=== PATIENT | male | born 1965 | race Caucasian/White ===

== ENCOUNTER 2018-06-25 01:11 | Inpatient (IN) | payer OTHER ==
--- NOTE | 2018-06-25 01:22 | EDPHY ---
H & P Stated Complaint: [facility]1 [facility], BROUGHT IN BY CARYN NORWOOD OUT OF SENIOR CARE Source: Patient, Police - Personal History Current Tetanus/Diphtheria Vaccine: Yes - Medical/Surgical History Hx Asthma: No Hx Chronic Respiratory Disease: No Hx Diabetes: No Hx Cardiac Disease: No Hx Renal Disease: No Hx Cirrhosis: No Hx Alcoholism: No Hx HIV/AIDS: No Hx Splenectomy or Spleen Trauma: No Other PMH: SCHIZOPHRENIA - Social History Smoking Status: Never smoked Time Seen by Provider: 06/25/18 01:20 HPI/ROS: HPI CHIEF COMPLAINT: M1 hold by police. From [facility]. HISTORY OF PRESENT ILLNESS: 45-year-old male presents emergency room on M1 hold. Patient is unclear why he is here, however came in on an m1 hold, for being gravely disabled. He has a history schizophrenia not taking his medications. He is homeless. According to the [facility] he was responding to internal stimuli. Unable to care for himself and not on any medications brought here on M1 hold. Past Medical History: Schizophrenia off medication Past Surgical History: No recent surgery Social History: The patient denies drugs alcohol tobacco. Homeless. Not employed. Family History: Noncontributory ROS REVIEW OF SYSTEMS: 10 Systems were reviewed and negative with the exception of the elements mentioned in the history of present illness. Exam Constitutional nontoxic triage nursing summary reviewed, vital signs reviewed, awake/alert. Eyes normal conjunctivae and sclera, EOMI, PERRLA. HENT normal inspection, atraumatic, moist mucus membranes, no epistaxis, neck supple/ no meningismus, no raccoon eyes. Respiratory clear to auscultation bilaterally, normal breath sounds, no respiratory distress, no wheezing. Cardiovascular rate normal, regular rhythm, no murmur, no edema, distal pulses normal. Gastrointestinal soft, non-tender, no rebound, no guarding, normal bowel sounds, no distension, no pulsatile mass. Genitourinary no CVA tenderness. Musculoskeletal no midline vertebral tenderness, full range of motion, no calf swelling, no tenderness of extremities, no meningismus, good pulses, neurovascularly intact. Skin pink, warm, & dry, no rash, skin atraumatic. Neurologic awake, alert and oriented x 3, AAOx3, moves all 4 extremities equally, motor intact, sensory intact, CN II-XII intact, normal cerebellar, normal vision, normal speech. Psychiatric flat affect, soft spoken Heme/Lymph/Immune no lymphadenopathy. Differential Diagnosis: Includes but is not limited to in a particular order underlying schizophrenia, mood disorder, bipolar disorder, drug intoxication, homelessness, grave disability Medical Decision Making: Plan for this patient blood draw for medical clearance , patient on M1 hold will need mental health evaluation. Re-evaluation: 0557AM: Signed over to Dr. Segura at 7am. No events overnight. Pending eval. (Mike Arriaga) Constitutional: Initial Vital Signs Temperature (C) 36.6 C 06/25/18 01:11 Heart Rate 73 06/25/18 01:11 Respiratory Rate 18 06/25/18 01:11 Blood Pressure 129/97 H 06/25/18 01:11 O2 Sat (%) 95 06/25/18 01:11 O2 Delivery Mode Room Air Allergies/Adverse Reactions: No Known Allergies Allergy (Unverified 06/25/18 01:11) Home Medications: Medication Instructions Recorded NK [No Known Home Meds] 06/25/18 Medical Decision Making ED Course/Re-evaluation: The patient remained stable on my shift. At 3pm he is still being evaluated by the psychiatric team. He will be turned over to Dr. Alba at shift change. (Von Segura) Other Provider: I assumed care of the patient care 0700. (Von Segura) I assumed care of this patient at 3:[address] Rush Segura. Had 4:00 p.m. I was notified that the patient has been accepted at [address] [place] [address]. EMTALA form has been signed. Transfer is anticipated around 6:00 p.m.. (Samantha Alba) - Data Points Laboratory Results: Laboratory Results 06/25/18 01:35 06/25/18 01:35 Medications Given: Paliperidone (Invega) 6 mg PO DAILY ALEJANDRO Stop: 12/23/18 14:44 Last Admin: 06/28/18 08:48 Dose: Not Given Discontinued Medications Permethrin (Lice Treatment) 59 ml TP ONCE ONE Stop: 06/26/18 17:02 Last Admin: 06/26/18 19:14 Dose: 59 ml Departure - Departure Disposition: [facility] IP Clinical Impression: Schizophrenia Qualifiers: Schizophrenia type: paranoid schizophrenia Qualified Code(s): F20.0 - Paranoid schizophrenia Condition: Fair
[2018-06-25 01:49] LABS: PLATELET COUNT 219 10^3/uL (150-400)
--- NOTE | 2018-06-25 12:10 | ASMTLCPROG ---
Notes Note: Notes: Contacted [facility] for collateral information. PT's Psychiatrist is Dr. Rogers, PT was seen 06/21/18 and is prescribed the following meds: Lamictal 25mg -2tabs in the morning (50mg), Nardil 15mg 2 each HS (30mg daily) Ridalin 20mg (daily) tab oral 0.5 each QID Date Signed: 06/25/2018 12:10 PM Electronically Signed By:Mitch Benjamin
--- NOTE | 2018-06-25 14:51 | ASMTTLCEVL ---
[facility] Evaluation - Basic Information Evaluation Start Date and 06/25/2018 01:00 PM Time Hospital Status Answers: M1 Hold 72-hr M1 Hold Start Date 06/24/2018 11:55 PM and Time Patient statement Notes: "I am not suicidal or violent, I was arrested for camping and they brought me here from retirement at 1:30 last night. I'd like to be released an have my own close and possessions back. Narrative Notes: Pt is a 52 YO white male, never , with no children, unemployed, homeless, presenting from [facility] (bonded out) on an M1 Hold as gravely disabled. Per previous reports the pt has a long hx of Schizoaffective Disorder and is not taking any medications. clinical assessment team noticed on the security monitors before entering the room that the PT did appear to be responding to internal stimuli, however during the evaluation he was calm and goal oriented about leaving being discharged Per M1 Hold " The responedant has a dx of Schorphrenia and has had no mental health treatment nor medications for quite some time. Repsondent is responding to internal stimuli and is extremely paranoid and guarded and not cabable of making informed decisions. Per ED report 52-year-old male presents emergency room on M1 hold. Patient is unclear why he is here, however came in on an m1 hold, for being gravely disabled. He has a history schizophrenia not taking his medications. He is homeless. According to the retirement he was responding to internal stimuli. Unable to care for himself and not on any medications brought here on M1 hold. Schizophrenia off medication Diagnosis History Notes: Schizoaffective Disorder, Bipolar Type 295.70 (F25.0) Prior suicide attempts Notes: Per previous 2009 medical reports the pt has had past suicide attempts. Prior hospitalizations Notes: Pt was hosptialized at [facility] inpt 3N unit in 2008. [facility] was contacted but was unable to provide any information about prior hospitalization due to system limitations. PT has been an open client but no records before Apr 2017 are accessible by [facility] Staff Medications (name, dosage, route, freq uency) Notes: PT is not currently on any medications. Per discharge summary from 2008 Again, his current medications include Haldol 5 mg in the morning and 10 mg at bedtime, Depakote 100 mg at bedtime. He is on a short-term certification, which I am transferring to the [facility]. He received Haldol Decanoate 25 mg intramuscularly on the date of discharge, 06/06/09. Per [facility] verbal report 06/21/31 (This does not seem congruent with pt's statements) Lamictal 25mg -2tabs in the morning (50mg), Nardil 15mg 2 each HS (30mg daily) Ridalin 20mg (daily) tab oral 0.5 each QID Allergies/Reaction Notes: No known allergies reported Sleep Notes: Not great because of my homelessness Appetite Notes: Good Medical/Surgical history Notes: PAST MEDICAL HISTORY: Depression, suicide attempts, rhabdomyolysis, acute renal insufficiency, which required dialysis after overdosing, seizures. In some of his past medical history I have read that he has hypertension. He denies this. PAST SURGICAL HISTORY: None. FAMILY HISTORY: His father had Parkinson's and from liver cancer. His mother in her 70s from heart failure. He has one living sister. Substance use history (frequency, intensity, his tory, duration) Notes: Per previous report "He does smoke a pack of cigarettes a day, since he was a teenager and at this time does not want to quit. He is not on any hard drugs or any marijuana. He does drink a case of beer approximately each week, when he is not here and he says that equals about a 12-pack for him each day. " Family composition Notes: His father had Parkinson's and from liver cancer. His mother in her 70s from heart failure. He has one living sister. Need for family Answers: No participation in patient's care Family psychiatric/substance abuse history Notes: None reported Developmental history Notes: Pt will not disclose, per [facility] report the PT is treated for ADHD with ritalin. No TBI's Concussions, or Abuse has been disclosed Abuse concerns Answers: None Marital status/children Notes: He has no children. He is not . Living situation Notes: Homeless Sexual history/orientation Notes: Heterosexual, not active Treatment Responses Notes: BEHAVIORAL HEALTH DISCHARGE SUMMARY Miky Fuentes MD DATE OF ADMISSION: 05/13/09 ANTICIPATED DATE OF DISCHARGE: 06/07/09 DATE OF DISCHARGE: 06/06/09 DIAGNOSES [place] I - Schizoaffective disorder, bipolar type, currently depressed, nicotine dependence, alcohol abuse. [place] II - No known problems. [place] III - History of seizure during alcohol withdrawal. [place] IV - Homeless and unemployed. [place] V - Discharge GAF of 55. PROCEDURES: None. COMPLICATIONS: None. BRIEF REVIEW OF CASE: Mr. Bro Lockett is a 43-year-old white male with a long history of schizoaffective disorder. He has been living in the [facility] and treated at the [facility] for most of the last decade. Mr. Lockett does have personal resources. His parents apparently left a trust fund to him and his brother is the trustee, so he does have some independent funds. This has led to some problems maintaining his health insurance because Mr. Lockett does not keep up with necessary paper work when his psychosis becomes more prominent. During these times, because he does have some independent resources, he is sometimes judged as not qualifying for disability or Medicaid and these have been discontinued in the past. This has led to him being dropped by treatment at the [facility] periodically over the past years. Most recently, Mr. Lockett has had treatment at the [facility] and actually apparently was discharged from the [facility] because he obtined some private insurance; however, he unfortunately did not follow up with any private practice psychiatrist and he did not remain on his medications. He was living independently in his own apartment but apparently off of his medications,his psychosis recurred and he became more and more paranoid starting in the spring of this year. He apparently made some threatening statements to his land lady at the apartment building where he was living and he was evicted from there for this and apparently for nonpayment of rent as well. This apparently was a forcible eviction. The patient then took what possessions he could and placed them in his automobile. He let air out of the tires of his automobile and proceeded to remain in his automobile. Eventually, police were called and when the approached Mr. Lockett, he was very fearful. He was apparently paranoid that the police were going to harm him. At one point, he locked the doors and then reached under his seat for something. The police were concerned that he as reaching for a weapon, and they forcibly entered the car and restrained him. He apparently did not have a weapon, however. The police did recognize Mr. Lockett as being mentally ill. They brought him to the [facility] Emergency Room on a 72-hour mental health hold. He was quite paranoid and we judged him to be gravely disabled and potentially dangerous to self and others. In particular, he was apparently threatening suicide or wishing that he were . He also had previously threatened the land lady suggesting significant dangerousness both to himself and to others. We admitted him to [facility] and restarted haloperidol and Depakote because these had worked in the past. In addition, I placed him on a short-term certification because of the grave disability and dangerousness. We had a court hearing at which the certification was upheld. Mr. Lockett began to improve significantly as we worked the dose of haloperidol up to a total of 15 mg per day on 5 mg in the morning and 10 mg at bedtime. His paranoia seemed to gradually lyndsey. His psychosis significantly improved. He was denying internal stimuli. He became more interactive with others and was able to participate in groups better. He seemed to respond to internal stimuli less and again was markedly less paranoid than he was on admission. By the week of 06/04/09, we judged that he had reached maximal hospital benefit and we thought that he was ready for placement at [facility]. [facility] was willing to have Mr. Lockett come back and be their patient again. The [facility] did not have a bed immediately available but it looked like they would have a bed on 06/07/09, so we prepared discharge 1 day before this. One other item to note, Mr. Lockett did agree finally to taking a long-acting shot of haloperidol. On 06/06/09, I ordered a 25 mg dose of IM haloperidol decanoate. He will next be due for a shot on 07/04/09, and I recommend that he be given 50 mg of haloperidol decanoate at that point in time. I would suggest continuing to work the dose up to a 100 mg dose of haloperidol decanoate every 4 weeks which will help be therapeutic for this patient. At the time of discharge, his dangerousness appeared to be minimal. His psychosis had markedly improved and as this was the main source of dangerousness, I feel comfortable assessing his dangerousness risk as minimal at the time of discharge. His mood had also improved and he was denying any desire to hurt himself or to hurt others. I am asking the [facility] to accept the transfer of the certification at the time of discharge. I think the patient is substantially better and can be treated in a less restrictive setting but reasons exist to be concerned about his remaining in a voluntary treatment program at this point in time. DISCHARGE MEDICATIONS: Include the haloperidol decanoate as mentioned above and also Haldol orally 5 mg in the morning and 10 mg at bedtime. He is also on Depakote 1000 mg at bed time. We hope Mr. Lockett will do well post discharge and remain in treatment. Mr. Bro Lockett, as I previously dictated, was prepared for discharge with anticipated date of discharge of 06/07/09; however, a bed became available at [facility] on the afternoon of 06/06/09. We did feel that he was ready for discharge on that date as he had been stable for several days, had been markedly improved from admission. I am discharging him on 06/06/09. Again, his current medications include Haldol 5 mg in the morning and 10 mg at bedtime, Depakote 100 mg at bedtime. He is on a short-term certification, which I am transferring to the [facility]. He received Haldol Decanoate 25 mg intramuscularly on the date of discharge, 06/06/09. 11/07/09 1148 <Electronically signed by Miky Fuentes MD> Miky Fuentes MD Signature date: Signature time: 1047 T: HOLLY 06/06/09 1620 History of violence Notes: Per 2008 Discharge Summary the Pt wasreported to be threatening, psychotic and labile and thus considered to dangerous while in that state. Therapist: None Psychiatrist: None Peer support/family strengths Notes: PT denied any support, and no other support reported or Identified; pt reported he is not in contact with his sister Education level/history Notes: 12th grade Work history Notes: Unemployed, per previous reports He used to work through [employer]. Notes: None Reported Legal Notes: Unable to locate booking information for PT Alevism/Spiritual Notes: PT denied being spiritual or religous Leisure Notes: PT will not disclose Collateral Notes: Collateral Data obtained from previous 3N discharge summary from 2008 and [facility] provided the pt's current medication list from his most recent visit 06/21/[address] Rogers pt is an open client of [facility] Patient's strengths Answers: Motivated for Treatment (Please select at least TWO strengths): Willingness TLC Evaluation - Mental Status Exam Appearance: Answers: Appropriate Clean Disheveled Eye Contact: Answers: Intermittent Mood: Answers: Irritable Affect: Answers: Appropriate Apprehensive Calm Guarded Behavior: Answers: Appropriate Cooperative Guarded Speech: Answers: Relevant Logical Clear Coherent Thought Process: Answers: Organized Oriented Goal Oriented Insight: Answers: Poor Judgement: Answers: Poor Manic Signs/Symptoms Answers: Distractibility Impulsivity Mood Swings Hallucinations: Answers: Auditory Delusions: Answers: Paranoid Ideation Pt reported to have Answers: No suicidal/self-injuring ideation/behavior? Pt reported to be making Answers: No suicidal/self-injuring threats? Pt reported to be making Answers: No aggression/assault threats? Pt exhibits inability to Answers: Yes care for self/grave disability? Ideation/behavior is Answers: Yes chronic? Pt has access to means to Answers: No execute the plan? Ideation involves Answers: No serious/lethal intent? Ideation has Answers: Yes delusional/hallucinatory content? History of Answers: No suicidal/self-injuring ideation, behavior, or threats? History of Answers: No aggressive/assaultive ideation, behavior, or threats? History of serious Answers: No physical harm to self/others while in treatment setting? TLC Evaluation - Suicide/Homicide Risk Suicide Risk Factors: Answers: < 20 or > 40 Years of Age Bipolar Disorder Inadequate Social Support Lack of Alevism Support Lack of Social Support Lack/Loss of Employment Legal Difficulties Schizoaffective Disorder Single Unstable Living Situation Homicide/violence risk Answers: Paranoid Ideation factors: Current Suicidal Ideation Answers: No in the Past 48 Hours? Current Suicidal Ideation Answers: No in the Past Month? Current Suicidal Answers: No Ideation, Worst Ever? Suicide Internal Answers: Frustration Tolerance Protective Factors: Kady with Stress Suicide External Answers: None Protective Factors: Ranking of patient's Answers: Low suicidal risk: Ranking of patient's Answers: Low homicidal risk: TLC Evaluation - Wrap-up AXIS I Diagnosis (include DSM-V and ICD-10 codes), must also be entered in [employer], which is the source of truth. Notes: Schizoaffective Disorder, Bipolar Type 295.70 (F25.0) PT refused to complete BDI or BSS Evaluation End Date and 06/25/2018 02:50 PM Time (HH:MM): Date Signed: 06/25/2018 02:50 PM Electronically Signed By:Mitch Benjamin
--- NOTE | 2018-06-25 14:56 | ASMTTCLDSP ---
TLC Discharge Disposition Disposition: Answers: Admit Disposition Notes: Notes: In consultation with [facility] ED physician, Rush Segura MD and on-call psychiatrist, Miky Shrestha APN , both concurred that pt appears to meet 27-65 criteria requiring psychiatric hospitalization as pt appears to be at risk of harm to self due to a mental illness condition. Was patient given the Answers: Yes Inpatient Behavioral Health Prohibited Belongings List while in the ED? For inpatient Miky Shrestha APN admission, the following psychiatrist agreed to accept patient for admission to Behavioral Health ([facility]): Hold initiated by: Answers: Other Notes: Griselda [facility] CHILD PSYCHIATRIST Date Signed: 06/25/2018 02:56 PM Electronically Signed By:Mitch Benjamin
[2018-06-25] MEDS ORDERED: ACETAMINOPHEN 325 MG TAB PO PRN (19:17)
[2018-06-25] MEDS ORDERED: OLANZapine DISINTEGR 10 MG TAB PO PRN (19:17)
[2018-06-25] MEDS ORDERED: MAGNESIUM HYDROXIDE 30 ML UDCUP PO PRN (19:17)
[2018-06-25] MEDS ORDERED: NICOTINE POLACRILEX 2 MG GUM B PRN (19:17)
[2018-06-25] MEDS ORDERED: MAG HYDROX/AL HYDROX/SIMETH 30 ML UDCUP PO PRN (19:17)
[2018-06-25] MEDS ORDERED: LORazepam 0.5 MG TAB PO PRN (19:17)
--- NOTE | 2018-06-26 08:18 | PDGENHP ---
History and Physical - Chief Complaint responding to internal stimuli - History of Present Illness 52yo M with a history of schizophrenia not on medications, homelessness who was brought in by the automobile rental representative from custodial on M1 hold for grave disability as he has been responding to internal stimuli. On my evaluation with patient, he is calm. Denies chest pain, sob, cough, fevers/chills, n/v/d, rashes, leg swelling. He denies taking any medications and denies any chronic medical problems for me. Typically smokes cigarettes but no etoh or illicits. Per RN, a lice was found on the patient. I examined the specimen and agree that it does appear to be a louse. History Information - Allergies/Home Medication List Allergies/Adverse Reactions: No Known Allergies Allergy (Unverified 06/25/18 01:11) Home Medications: NK [No Known Home Meds] 06/25/18 [Last Taken Unknown] I have personally reviewed and updated: family history, medical history, social history, surgical history - Past Medical History Additional medical history: schizoaffective disorder, depression, suicide attempts, rhabdomyolysis, acute renal failure requiring dialysis after overdosing, seizures, ? HTN - Surgical History Reports: no pertinent surgical hx - Family History Additional family history: father - Parkinson's, dief of liver cancer, mother - in 70s from heart failure, one sister - Social History Smoking Status: Current some day smoker Tobacco Use: Cigarettes Alcohol Use: None Drug Use: None Additional social history: not , no children, homeless Review of Systems Review of Systems: ROS: 10pt was reviewed & negative except for what was stated in HPI & below Physical Exam Physical Exam: Temp Pulse Resp BP Pulse Ox 36.8 C 66 14 118/68 92 06/26/18 06:00 06/26/18 06:00 06/26/18 06:00 06/26/18 06:00 06/26/18 06:00 Constitutional: no apparent distress, appears nourished, not in pain Eyes: PERRL, anicteric sclera, EOMI Ears, Nose, Mouth, Throat: moist mucous membranes, hearing normal, ears appear normal, no oral mucosal ulcers Cardiovascular: regular rate and rhythym, no murmur, rub, or gallop, No edema Respiratory: no respiratory distress, no rales or rhonchi, clear to auscultation Gastrointestinal: normoactive bowel sounds, soft, non-tender abdomen, no palpable masses Genitourinary: no bladder fullness, no bladder tenderness Skin: warm, normal color, no rashes or abrasions, no fluctuance, no induration, other (no lice on scalp examination), No mottled Musculoskeletal: full muscle strength, no muscle tenderness, normal joint ROM, no joint effusions Neurologic: AAOx3 Psychiatric: interacting appropriately, not anxious, not encephalopathic, thought process linear Lab Data & Imaging Review 06/25/18 01:35 06/25/18 01:35 WBC 8.48 10^3/uL (3.80-9.50) 06/25/18 01:35 RBC 4.75 10^6/uL (4.40-6.38) 06/25/18 01:35 Hgb 15.2 g/dL (13.7-17.5) 06/25/18 01:35 Hct 43.9 % (40.0-51.0) 06/25/18 01:35 MCV 92.4 fL (81.5-99.8) 06/25/18 01:35 MCH 32.0 pg (27.9-34.1) 06/25/18 01:35 MCHC 34.6 g/dL (32.4-36.7) 06/25/18 01:35 RDW 12.4 % (11.5-15.2) 06/25/18 01:35 Plt Count 219 10^3/uL (150-400) 06/25/18 01:35 MPV 11.3 fL (8.7-11.7) 06/25/18 01:35 Neut % (Auto) 57.9 % (39.3-74.2) 06/25/18 01:35 Lymph % (Auto) 26.7 % (15.0-45.0) 06/25/18 01:35 Alger % (Auto) 8.4 % (4.5-13.0) 06/25/18 01:35 Eos % (Auto) 5.7 % (0.6-7.6) 06/25/18 01:35 Baso % (Auto) 0.9 % (0.3-1.7) 06/25/18 01:35 Nucleat RBC Rel Count 0.0 % (0.0-0.2) 06/25/18 01:35 Absolute Neuts (auto) 4.92 10^3/uL (1.70-6.50) 06/25/18 01:35 Absolute Lymphs (auto) 2.26 10^3/uL (1.00-3.00) 06/25/18 01:35 Absolute Monos (auto) 0.71 10^3/uL (0.30-0.80) 06/25/18 01:35 Absolute Eos (auto) 0.48 10^3/uL (0.03-0.40) H 06/25/18 01:35 Absolute Basos (auto) 0.08 10^3/uL (0.02-0.10) 06/25/18 01:35 Absolute Nucleated RBC 0.00 10^3/uL (0-0.01) 06/25/18 01:35 Immature Gran % 0.4 % (0.0-1.1) 06/25/18 01:35 Immature Gran # 0.03 10^3/uL (0.00-0.10) 06/25/18 01:35 Sodium 143 mEq/L (135-145) 06/25/18 01:35 Potassium 4.2 mEq/L (3.3-5.0) 06/25/18 01:35 Chloride 108 mEq/L (97-110) 06/25/18 01:35 Carbon Dioxide 27 mEq/l (22-31) 06/25/18 01:35 Anion Gap 8 mEq/L (6-14) 06/25/18 01:35 BUN 23 mg/dL (7-23) 06/25/18 01:35 Creatinine 1.0 mg/dL (0.7-1.3) 06/25/18 01:35 Estimated GFR > 60 06/25/18 01:35 Glucose 101 mg/dL (70-100) H 06/25/18 01:35 Hemoglobin A1c 5.2 % (4.0-6.0) 06/25/18 19:21 Estim Average Glucose 103 mg/dL (68-126) 06/25/18 19:21 Calcium 9.8 mg/dL (8.5-10.4) 06/25/18 01:35 Total Bilirubin 0.4 mg/dL (0.1-1.4) 06/25/18 19:21 Conjugated Bilirubin 0.2 mg/dL (0.0-0.5) 06/25/18 19:21 Unconjugated Bilirubin 0.2 mg/dL (0.0-1.1) 06/25/18 19:21 AST 30 IU/L (17-59) 06/25/18 19:21 ALT 29 IU/L (21-72) 06/25/18 19:21 Alkaline Phosphatase 52 IU/L (38-126) 06/25/18 19:21 Total Protein 7.3 g/dL (6.3-8.2) 06/25/18 19:21 Albumin 4.0 g/dL (3.5-5.0) 06/25/18 19:21 Triglycerides 80 mg/dL (40-150) 06/25/18 19:21 Cholesterol 219 mg/dL (140-220) 06/25/18 19:21 Cholesterol Risk Factr 0.8 (0.2-1.0) 06/25/18 19:21 LDL Cholesterol, Calc 149 mg/dL (80-100) H 06/25/18 19:21 LDL Risk Factor 1.0 (0.2-1.0) 06/25/18 19:21 VLDL Cholesterol 16 mg/dL (8-25) 06/25/18 19:21 Non-HDL Cholesterol 165 mg/dL (90-129) H 06/25/18 19:21 HDL Cholesterol 54 mg/dL (40-65) 06/25/18 19:21 LDL/HDL Ratio 2.76 RATIO (1.00-3.64) 06/25/18 19:21 Cholesterol/HDL Ratio 4.06 RATIO (1.00-4.97) 06/25/18 19:21 Urine Opiates Screen NEGATIVE (NEGATIVE) 06/25/18 07:26 Urine Barbiturates NEGATIVE (NEGATIVE) 06/25/18 07:26 Ur Phencyclidine Scrn NEGATIVE (NEGATIVE) 06/25/18 07:26 Ur Amphetamine Screen NEGATIVE (NEGATIVE) 06/25/18 07:26 U Benzodiazepines Scrn NEGATIVE (NEGATIVE) 06/25/18 07:26 Urine Cocaine Screen NEGATIVE (NEGATIVE) 06/25/18 07:26 U Marijuana (THC) Screen NEGATIVE (NEGATIVE) 06/25/18 07:26 Ethyl Alcohol < 10 mg/dL (0-10) 06/25/18 01:35 Assessment & Plan Assessment: 52yo M with a history of schizoaffective disorder not on medications, homelessness who was brought in by the automobile rental representative from custodial on M1 hold for grave disability as he was responding to internal stimuli. Plan: #Acute psychosis with schizoaffective disorder - decompensated, reportedly not on medications - M1 hold, admitted to at [facility] #Lice - ordered permethrin lotion for scalp - no need for isolation room, but ensure that he is not sharing towels, bedding, pillows, etc with other patients #H/o renal failure - this was in setting of drug toxicity - creatinine normal here #Elevated BP - unclear if carries true diagnosis of HTN - no indication for anti-hypertensives at this time #? h/o seizures - unclear history on this, he denies but was in prior chart - not currently on AEDs #Tobacco use - recommend nicotine replacement VTE ppx: ambulation
--- NOTE | 2018-06-26 11:29 | ASMTBHMTP ---
Master Treatment Plan Master Treatment Plan Answers: Impaired Reality for: Date: 06/26/2018 Diagnosis on Admission: Schizoaffective Disorder, Bipolar Type 295.70 Expected length of stay: 3-5 Days Reason for admission: Notes: Per TLC Evaluation - Pt. is a 52 year old, white male, never , with no children, unemployed, homeless, presenting from long-term (bonded out) on an M1 hold as gravely disabled. Per previous reports the patient has a long history of schizoaffective disorder and is not taking any medications. clinical assessment team noticed on the security monitors before entering the room the pt did appear to be responding to internal stimuli, however during the evaluation he was calm and goal oriented about leaving being discharged. Per M1 hold "The respondent has a diagnosis of schizophrenia and has had no mental health treatment nor medications for quite some time. Respondent is responding to internal stimuli and is extremely paranoid and guarded and not capable of making informed decisions. Patient's stated presenting problems: Notes: Pt. stated he is here against my will. Pt. stated to review report about why he was admitted to the hospital. Patient's goals for treatment: Notes: Nope Patient's strengths: Notes: Don't know. You would have to ask other people. Identify supports outside of hospital: Notes: Me/Self Discharge criteria: Notes: Psychotic symptoms will be reduced or eliminated with return to baseline functioning in affect, thinking and behavior prior to discharge. Initial disposition plan/considerations: Notes: "Landless pesmitra" who lives in the [place] area. Master Treatment Plan Required Signatures Psychiatrist signature: Answers: Chaim Virk MD: RN on-shift signature: Answers: RN: Patient signature: Answers: Patient: Date Signed: 06/26/2018 11:28 AM Electronically Signed By:Nupur Ramsay
--- NOTE | 2018-06-26 16:36 | BAPA ---
DATE OF SERVICE: 06/26/2018 CHIEF COMPLAINT: "I am not suicidal or violent. I was arrested for camping, and they brought me here from residential at 1:30 last night. I'd like to be released and have my own clothes and possessions back." HISTORY OF PRESENT ILLNESS: The patient is a 52-year-old homeless white man, never , no children, unemployed, presents from residential after bottoming out on an M1 hold for grave disability. According to the M1 hold, which was filled out by an WHARF HELPER at the [facility], states "the respondent has a diagnosis of schizophrenia and has had no mental health treatment, nor medications for quite some time. Respondent is responding to internal stimuli and is extremely paranoid and guarded and not capable of making informed decisions." Based on the T[facility] evaluation, they stated that the behavioral health clinical assessment team at the residential noticed "on security monitors before entering the patient's room that the patient did appear to be responding to internal stimuli;" however, according to the TLC evaluation, when the TLC adzing and boring machine helper met with the patient in the [facility] ED, he was "calm and goal oriented about leaving the emergency department and being discharged." The TLC adzing and boring machine helper noted the patient understood what was happening to him. He understood his situation. He was oriented to person, place, and time. The patient gave no indication that he was incapable of planning for food, clothing , and custodial were he not to be in the hospital. When this MD met with the patient on the inpatient behavioral health services unit on [address], he had just taken a shower. He washed his clothes. He put on hospital scrubs and a hospital gown. He put on clean socks. He was calm, cooperative, pleasant. He had a flat affect. He engaged the MD appropriately. He made good eye contact. His thought process was linear and goal directed. The patient said that he did not understand why he was sent to the psychiatric unit. He said he did not realize that he had been placed on a mental health hold. He said that he did not understand when the mental health hold had been placed. attempted to explain that it was done by an WHARF HELPER at the [facility]. He said that he did remember a member of the MHP team at the residential coming and talking to him in the meeting area at the residential. He states that he did not "get along with her" and said that he did not want to talk to her. This might explain why the WHARF HELPER, Tesha Marshall, noted that the patient was " paranoid and guarded and not capable of making informed decisions." The patient states that he simply did not want to talk to the provider. Did not understand who they were. He says "they didn't have a badge." The patient says he was not sure why he was being questioned or evaluated. This might have come across as withdrawn and guarded and possibly defensive to the WHARF HELPER. When MD specifically asked the patient about paranoid delusions and any psychotic symptoms, he denied experiencing auditory or visual hallucinations. He denied bizarre thoughts, intrusive thoughts. He denied ideas of reference, and he denied any paranoid delusions. He said he was not scared or fearful about being in the hospital. He did not believe that anyone was out to harm him. He did not believe that people were monitoring him or watching him. The MD did ask the patient about whether or not he had any thoughts of self harm. The patient denied any thoughts, plans or intents to hurt himself. MD did review the BSS with the patient. He had noted on question #2, he had circled #1, "I have a weak wish to ." He also said, "My reasons for living or dying are about equal," but he also said, in response to question #1, "I have a moderate to strong wish to live." He also said in response to question #13, "I do not have access to a method or an opportunity to kill myself." He also said to question #7, "I rarely or only occasionally thing about killing myself." In response to question #9, he said, "I can keep myself from committing suicide." He also said in response to question #12, "I have no specific plan about how to kill myself." When MD asked how the patient was feeling today, he denied having any thoughts, plans or intents to hurt himself or anyone else. He said he was not thinking about suicide today, and he said that "I want to be alive." PAST PSYCHIATRIC HISTORY: The patient was hospitalized at [facility] on the inpatient behavioral health services unit in 2008. At that time, he was treated by Dr. Fuentes. He was on a short-term certification, and he was discharged on Haldol 5 mg p.o. q.a.m., 10 mg p.o. q.h.s.; and Depakote 1000 mg p.o. q.h.s. He was also given a Haldol Decanoate long-acting injection 25 mg dose on 2008 . He had been an open client with [facility] for most of the last 10 years. He has seen Dr. Rogers in the past. When he left [facility] on 2008, he was discharged to [facility] with a plan to follow up with Dr. Rogers. There are no recent records from [facility], and it is uncertain when the patient's last visit with a provider at [facility] took place. The patient says, "I can't remember" when asked about previous providers, more recent medications and any other recent hospitalizations. The patient says, "I don't know." ALLERGIES: The patient has no known drug allergies. CURRENT MEDICATIONS: The patient is not currently taking any medication. LABS: Were done in the [facility] ED. White cell count was 8.48, hemoglobin 15.2, hematocrit 43.9, platelet count 219. Sodium was 143, potassium 4.2, chloride 108, BUN 23, creatinine 1.0, glucose 101. Hemoglobin A1c 5.2. AST 30 , ALT 29, alkaline phosphatase 52, total protein 7.3. Triglycerides 80, cholesterol 219, LDL 149, VLDL 16, HDL 54. Urine drug screen was negative for all drugs of abuse. Ethyl alcohol level was undetected. PAST MEDICAL HISTORY: According to Dr. Candelario, the hospitalist who saw the patient, the patient's medical records indicate a prior medical history for acute renal failure requiring dialysis after overdosing, history of hypertension , history of seizures, prior history of rhabdomyolysis. PAST SURGICAL HISTORY: The patient has no pertinent surgical history. SOCIAL HISTORY: According to the behavioral health discharge summary from the patient's prior admission in 2008, Dr. Fuentes noted that the patient has been "living in the [place] area and treated at [facility] for most of the last decade. The patient does have personal resources. His parents, apparently, left him a trust fund, and his brother is the trustee, so he does have some independent funds. This has led to some problems maintaining his health insurance, because the patient does not keep up the necessary paperwork when his psychosis becomes more prominent. During these times, because he does have some independent resources, he is sometimes judged as not qualifying for disability or Medicaid, and these have been discontinued in the past. This has led to him being dropped by the treatment team at [facility] periodically over the past years. FAMILY HISTORY: The patient reports that his father had Parkinson disease and from liver cancer. His mother from heart failure. He has 1 living sister. No report of substance abuse or mental illness in the family. SUBSTANCE USE: According to medical records, the patient has a history of smoking a pack of cigarettes a day. He also states that he is used to drinking a lot of beer. He says that normally for him he drinks anywhere from a 6-pack to a 12-pack a day. He goes through about "a case of beer approximately each week," according to prior records. The patient is not willing to disclose any recent episodes of drug or alcohol use. When asked when the most recent time he drank alcohol was, the patient declines to answer. He also does not give any specific answers about frequency or amount he might be drinking. At least for the last several days, the patient has been in residential and has not been drinking for the last few days. He does not report any signs or symptoms of alcohol withdrawal. LEGAL HISTORY: The patient states that he was picked up for "camping" and taken to the residential before he bonded out on a personal recognizance darby. MENTAL STATUS EXAMINATION: This is a tall, thin, unkempt-appearing male, although he just got out of the shower, wearing clean scrubs, a hospital gown, and socks. He is alert and oriented x3. He still does not understand why he is in the hospital. His affect is flat. His demeanor is appropriate. He makes good eye contact. His speech rate is slow, and volume is low. His intellectual function appears to be average based upon vocabulary, fund of knowledge, educational history. He denies feeling sad, helpless, hopeless, worthless, or anxious. He denies having any thoughts, plans or intents to hurt himself or anyone else. He denies any symptoms of psychosis, including denying auditory and visual hallucinations, paranoid delusions, ideas of reference and any bizarre thoughts. There are no signs or symptoms of kee present. He does not have increase in goal-directed activity, decreased need for sleep, pressured speech, or grandiose delusions. He denies racing thoughts. He does not have elated or elevated mood. His thought process is linear and goal directed. His insight and judgment both appear to be impaired, as evidenced by his non-adherence and noncompliance with outpatient treatment. He has been off medication and has not seen a provider to [facility] for an unknown period of time. Patient is not forthcoming about any of his previous psych history. IMPRESSION: 1. Schizophrenia, unknown type reported by history. 2. Alcohol use disorder, unknown severity by history. 3. Homelessness. 4. Unemployed. 5. Non-adherence and noncompliance with outpatient treatment. 6. Limited social support. 7. Very little collateral information available. PLAN: 1. Admit patient to the inpatient behavioral services unit on [address] on an M1 hold. 2. We will monitor closely for safety. The patient is not currently exhibiting any signs of psychosis or unsafe behavior. He is acting appropriately. He denies any thoughts, plans or intents to hurt himself or anyone else. 3. We will continue to monitor and observe the patient. We will be looking for signs of psychosis, but currently, the patient has been cooperative, following unit rules. 4. MD did discuss with the patient the option of being on antipsychotic medications since he has a significant prior history of a diagnosis of schizophrenia from [facility]. He has been on medications for most of the last 10-15 years. He cannot remember how long it has been since he has seen a provider at [facility]. The [facility] adzing and boring machine helper did attempt to contact [facility], but they said that they could not access records in their computer at the time, and they said they did not have any recent progress notes or records of any visits with any mental health providers. They have no record of when the patient last took medications. The only records that this MD has access to currently are from our own emergency department and from Dr. Fuentes's discharge summary from May 2009. At that time, the patient was taking Haldol and Depakote. MD talked to the patient about being on an atypical antipsychotic medication and discussed several options, including Risperdal, Invega, olanzapine, Geodon or being on a typical neuroleptic such as Haldol, which he has taken in the past with obviously good effect. After reviewing the risks, benefits, and side effects of these medications, the patient did give informed consent to start Invega. MD suggested to the patient that he might want to switch to a long- acting injectable. The patient said he was not interested in taking shots here in the hospital but said that if he changes his mind and decided that he wanted to be on a long-acting injectable that he would discuss it with his outpatient providers. MD said that the child care group leader would assist the patient with getting him set up with [facility]. If he is not still an open client with them, he may have to go through the intake process. The patient said he understood. He knew where the walk-in clinic was at the [facility]. He also knew how to access services through [facility] and [facility] for his primary care needs. 5. Estimated length of stay is 2-3 days. It is likely that when the patient's mental health hold expires, he may not meet criteria to be on a short-term certification. He is not currently exhibiting any of the symptoms that the WHARF HELPER , who placed him on an M1 hold, noticed while he was in residential. He is not paranoid, guarded, and he does not show any signs of responding to internal stimuli at this time, but MD has only had brief interactions with the patient and will collect more information from other staff, who have had direct contact with him over the next 24 hours, to make a decision about the patient's safety were he to be discharged from the hospital upon the expiration of his M1 hold. /[id number]/MODL MTDD
[2018-06-26] MEDS: PALIPERIDONE 3 MG TAB.ER PO SCH (16:39)
[2018-06-26] MEDS ORDERED: PERMETHRIN 1% 59 ML LOTION (Hair rinse) TP ONE (17:01)
[2018-06-27] MEDS: PALIPERIDONE 3 MG TAB.ER PO SCH (10:19)
--- NOTE | 2018-06-27 16:23 | SOAPPROG ---
SOAP Progress Note Assessment/Plan: Assessment: 52 yo homeless man sent to ED on M1 upon bonding out of skilled nursing d/t psychotic sxs. Plan: 06/27/18 16:19 1. Patient refused to take Invega yesterday or today, after telling MD he would take it. Patient says he's had "bad experiences" with meds in past, but specifically denies dystonic reactions, EPS or TD from antipsychotics. He also told MD that he didn't remember taking Invega before. 2. Patient still insists he doesn't need to be here. He wants to return to [facility] b/c he doesn't like staying at homeless senior living. 3. Will place patient on STC as he is still psychotic, refusing meds and does not agree to stay voluntarily. 4. MD requested records from [facility]. It's unknown when patient was last seen or treated by MH provider. Subjective: Patient refuses to take psych meds b/c he "doesn't like meds" and has had "bad experiences" in past, though he denies any allergic reactions or EPS. When RN asked patient how he planned to take care of himself after discharge, he said he would get food from "scientologist places" around town, and he would return to [facility], but wouldn't say where. Patient said he doesn't like to stay at homeless senior living. Objective: Vital Signs Temp Pulse Resp BP Pulse Ox 36.8 C 69 15 143/79 H 95 06/27/18 06:00 06/27/18 06:00 06/27/18 06:00 06/27/18 06:00 06/27/18 06:00 MSE: Affect: Constricted Mood: "Fine" TP: Disorganized, illogical TC: Denies any SI/HI, some paranoid ideas Perception: Denies any AH/VH, but very guarded and preoccupied Insight/Judgment: Impaired - Time Spent With Patient Time Spent With Patient: 15" - Pending Discharge Pending Discharge Within 24 Hours: No Pending Discharge Within 48 Hours: No ICD10 Worksheet Patient Problems: Problems Problem Status Onset Schizophrenia Acute
[2018-06-28] MEDS: PALIPERIDONE 3 MG TAB.ER PO SCH (08:48)
--- NOTE | 2018-06-28 09:09 | SOAPPROG ---
SOAP Progress Note Assessment/Plan: Assessment: Schizophrenia, no improvement noted; patient refusing medications (see Subjective and Objective). Patient is not safe to discharge at this time as patient continues to exhibit signs of psychosis. Patient requires continued inpatient care because of current psychosis, and requires inpatient level of care to stabilize in order to no longer be gravely disabled due to mental illness. Patient could benefit from continued inpatient hospitalization for crisis stabilization, safety, and medication evaluation. Patient has a history of medication non-adherence and could benefit from NUÑEZ prior to discharge. Plan: (1) Psychotropic medications: Patient refusing medications. Consult with MD regarding court-ordered medications. (2) Review with patient informed consent and recommendations for psychotropic medication treatment listed below. (3) Labs: no additional labs at this time (4) Therapy: continue milieu and group therapy (5) Further investigation including gathering information from patients relatives and review of past case records to inform treatment plan. (6) Safety/Wellness plan and follow-up outpatient appointments to be established prior to discharge. Next steps are for patient to meet with healthcare prof to plan a safe discharge plan and establish outpatient services for ongoing treatment. (7) Confer with inpatient treatment team regarding treatment plan. (8) Legal status: [facility] (9) Consider discharge next week if patient is in stable condition, safe, and has a safe discharge plan. PSYCHOTROPIC MEDICATION TREATMENT INFORMED CONSENT and RECOMMENDATIONS: Review nature of condition, diagnosis, and prognosis. Review nature and purpose of psychotropic medication treatment. Review type of psychotropic medications being ordered. Review risk and benefits of psychotropic medication treatment. Review probable length of time patient will need to take medications. Review risk and benefits of not undergoing psychotropic medication treatment. Review alternative treatments to psychotropic medications. Review psychotropic medications contraindications, drug-drug interactions, side effects, and importance of reporting any side effects to a psychiatric provider or nurse during inpatient hospitalization, and upon discharge to patients psychiatric outpatient provider, primary care provider, or other health health care administrator. Review importance of asking a nurse, psychiatric provider, or primary care provider any questions or problems concerning the psychotropic medications. Verify patient understands the information that has been provided, and understands, accepts, and agrees to psychotropic medications. Review patients safety plan and importance of patient to report to staff while hospitalized if patient is ever a danger to self/others, or unable to care for self, and upon discharge, the importance for patient to contact [facility] or [facility], or go to the nearest emergency room, if patient is ever a danger to self/others, or unable to care for self. Recommend that upon discharge patient establish medication management treatment with a psychiatric provider, establishes routine therapy appointments, and follow-up with primary care provider. Verify patient understands and agrees to these recommendations. 06/28/18 09:08 Subjective: Following up with patient for evaluation of psychosis and safety. Patient reports he refuses to take medications and states, "I see no reason to be on them, I do not want to take them." Patient denies any psychiatric symptoms, denies AH, and denies he was acting bizarrely and attending to internal stimuli in [facility] and at [facility]. Discuss options, risks, and benefits with patient and patient continues to refuse and states, "I do not have a mental illness and do not need to take medications." Objective: Vital Signs Temp Pulse Resp BP Pulse Ox 36.7 C 79 15 130/81 H 94 06/28/18 06:00 06/28/18 06:00 06/28/18 06:00 06/28/18 06:00 06/28/18 06:00 NURSING REPORT: Consulted with nursing for update on patients progress in treatment. Nurses report patient is not engaged in treatment, refuses medications. Paranoid, withdrawn. URBAN AND REGIONAL PLANNER UPDATE: establishing discharge plan with [facility] for follow-up after discharge; and referrals for homeless shelters in [facility]. Requested records from [facility]. MD REPORT FROM WEEKEND: long hx schizophrenia; last admitted to [facility] in 2008. At that time was on Haldol DEC 25 mg QMonth, Haldol 5 mg po QAM and 10 QHS. Refused Invega x 2, after initially consenting. Placed on [facility] on Thursday. MD CONSULT: court-ordered medications MSE: The patient is an under-nourished male looking older than stated chronological age. Attire is inappropriate and dress is casual and hospital garb combination. Grooming status is inappropriate. Ambulation is independent. Gait is normal and coordinated. Posture is normal and relaxed. Eye contact is inappropriate and avoided. Motor activity is appropriate with purposeful, organized, coordinated movements; with no involuntary movements. Attitude is uncooperative and defensive. Patient appears distracted and does not relate well to this interviewer. Language production is spontaneous. R/R/ V normal. Articulation is clear. Patient reports mood as okay with incongruent and flat, constricted affect. Patients thought process is non- linear and illogical. Patient does not report suicidal/homicidal thoughts, ideas, or plans. Patient denies auditory, visual hallucinations. Patient denies delusions. Patient does not appear to be attending to internal stimuli during interview. Patients attention and concentration are poor. Patient is oriented to person, place, time. Patients insight and judgement are poor. - Time Spent With Patient Time Spent With Patient: 15 minutes, met with patient individually. - Pending Discharge Pending Discharge Within 24 Hours: No Pending Discharge Within 48 Hours: No ICD10 Worksheet Patient Problems: Problems Problem Status Onset Schizophrenia Acute
--- NOTE | 2018-06-29 08:14 | SOAPPROG ---
SOAP Progress Note Assessment/Plan: Assessment: Schizophrenia, no improvement noted; patient refusing medications (see Subjective and Objective). Patient is not safe to discharge at this time as patient continues to exhibit signs of psychosis. Patient requires continued inpatient care because of current psychosis, and requires inpatient level of care to stabilize in order to no longer be gravely disabled due to mental illness. Patient could benefit from continued inpatient hospitalization for crisis stabilization, safety, and medication evaluation. Patient has a history of medication non-adherence and could benefit from NUÑEZ prior to discharge. Plan: (1) Psychotropic medications: Patient refusing medications. Consult with MD regarding court-ordered medications. (2) Review with patient informed consent and recommendations for psychotropic medication treatment listed below. (3) Labs: no additional labs at this time (4) Therapy: continue milieu and group therapy (5) Further investigation including gathering information from patients relatives and review of past case records to inform treatment plan. (6) Safety/Wellness plan and follow-up outpatient appointments to be established prior to discharge. Next steps are for patient to meet with director of healthcare systems to plan a safe discharge plan and establish outpatient services for ongoing treatment. (7) Confer with inpatient treatment team regarding treatment plan. (8) Legal status: [facility] (9) Consider discharge next week if patient is in stable condition, safe, and has a safe discharge plan. PSYCHOTROPIC MEDICATION TREATMENT INFORMED CONSENT and RECOMMENDATIONS: Review nature of condition, diagnosis, and prognosis. Review nature and purpose of psychotropic medication treatment. Review type of psychotropic medications being ordered. Review risk and benefits of psychotropic medication treatment. Review probable length of time patient will need to take medications. Review risk and benefits of not undergoing psychotropic medication treatment. Review alternative treatments to psychotropic medications. Review psychotropic medications contraindications, drug-drug interactions, side effects, and importance of reporting any side effects to a psychiatric provider or nurse during inpatient hospitalization, and upon discharge to patients psychiatric outpatient provider, primary care provider, or other health nursing care attendant. Review importance of asking a nurse, psychiatric provider, or primary care provider any questions or problems concerning the psychotropic medications. Verify patient understands the information that has been provided, and understands, accepts, and agrees to psychotropic medications. Review patients safety plan and importance of patient to report to staff while hospitalized if patient is ever a danger to self/others, or unable to care for self, and upon discharge, the importance for patient to contact [facility] or [facility], or go to the nearest emergency room, if patient is ever a danger to self/others, or unable to care for self. Recommend that upon discharge patient establish medication management treatment with a psychiatric provider, establishes routine therapy appointments, and follow-up with primary care provider. Verify patient understands and agrees to these recommendations. 06/29/18 08:15 Subjective: Following up with patient for evaluation of psychosis and safety. Review psychotic medication options, risks, and benefits with patient and inquire whether patient is willing to take any medications for his condition and patient states, "Not here." Patient provides no further rationale for refusing mediations. Patient denies having a mental illness, denies ever being on medications, and denies being hospitalized here in 2008. Patient denies any psychiatric symptoms, denies AH, and denies he was acting bizarrely and attending to internal stimuli in [facility] and at [facility]. Objective: Vital Signs Temp Pulse Resp BP Pulse Ox 36.3 C 77 15 129/80 H 93 06/29/18 06:00 06/29/18 06:00 06/29/18 06:00 06/29/18 06:00 06/29/18 06:00 NURSING REPORT: Consulted with nursing for update on patients progress in treatment. Nurses report patient is not engaged in treatment, refuses medications. Paranoid, withdrawn. RN reports patient remained in his room yesterday, only out for meals. AGILE TESTER UPDATE: establishing discharge plan with [facility] for follow-up after discharge; and referrals for homeless shelters in [facility]. Requested records from [facility]. MD REPORT FROM WEEKEND: long hx schizophrenia; last admitted to [facility] in 2008. At that time was on Haldol DEC 25 mg QMonth, Haldol 5 mg po QAM and 10 QHS. Refused Invega x 2, after initially consenting. Placed on ST on Thursday. MD CONSULT: court-ordered medications MSE: The patient is an under-nourished male looking older than stated chronological age. Attire is inappropriate and dress is casual and hospital garb combination. Grooming status is inappropriate. Ambulation is independent. Gait is normal and coordinated. Posture is normal and relaxed. Eye contact is inappropriate and avoided. Motor activity is appropriate with purposeful, organized, coordinated movements; with no involuntary movements. Attitude is uncooperative and defensive. Patient appears distracted and does not relate well to this interviewer. Language production is spontaneous. R/R/ V normal. Articulation is clear. Patient reports mood as okay with incongruent and flat, constricted affect. Patients thought process is non- linear and illogical. Patient does not report suicidal/homicidal thoughts, ideas, or plans. Patient denies auditory, visual hallucinations. Patient denies delusions. Patient does not appear to be attending to internal stimuli during interview. Patients attention and concentration are poor. Patient is oriented to person, place, time. Patients insight and judgement are poor. - Time Spent With Patient Time Spent With Patient: 15 minutes, met with patient individually. - Pending Discharge Pending Discharge Within 24 Hours: No Pending Discharge Within 48 Hours: No ICD10 Worksheet Patient Problems: Problems Problem Status Onset Schizophrenia Acute
[2018-06-29] MEDS: PALIPERIDONE 3 MG TAB.ER PO SCH ×2 (09:03→09:34)
--- NOTE | 2018-06-29 14:46 | ASMTCMCOM ---
CM Note CM Note Notes: Pt. stated he felt he has been in the hospital for a week. Pt. stated he doesn't want to take the Invega, stating he is worried about sexual issues after reading the medication handout. Pt. stated he would like a different approach, possibly something more holistic. Pt. stated he could drink sleepy time tea to fall asleep verses taking medication. Pt. stated he is attending groups. Pt. shared his sleep is "getting worse here". Pt. denied SI, HI, and AVH. Pt. reports some paranoia about taking medications from this hospital now. Pt. presents as alert, bit anxious, suspicious guarded, good eye contact and pleasant with CC. Staff report pt. sleeping 8 hours and refusing all medications. Date Signed: 06/29/2018 02:46 PM Electronically Signed By:Nupur Ramsay
[2018-06-29] MEDS ORDERED: OLANZapine DISINTEGR 10 MG TAB PO SCH (21:00)
--- NOTE | 2018-06-30 07:53 | SOAPPROG ---
SOAP Progress Note Assessment/Plan: Assessment: Schizophrenia. Withdrawn, diminished emotional affect. Slight improvement noted; notably willingness to take medications as prescribed, improved insight and linear thinking (see Subjective and Objective). Patient is not safe to discharge at this time as patient continues to exhibit signs of psychosis ( withdrawn, diminished emotional affect). Patient reports AH. Patient requires continued inpatient care because of current psychosis, and requires inpatient level of care to stabilize to no longer be gravely disabled due to mental illness. Patient unable to attend to ADLs without prompting and direction from staff. Patient could benefit from continued inpatient hospitalization for crisis stabilization, safety, and medication evaluation. Plan: (1) Psychotropic medications: Patient agrees to schedule Zyprexa Zydis 10 mg po BID. (2) Review with patient informed consent and recommendations for psychotropic medication treatment listed below. (3) Labs: no additional labs at this time (4) Therapy: continue milieu and group therapy (5) Further investigation including gathering information from patients relatives and review of past case records to inform treatment plan. (6) Safety/Wellness plan and follow-up outpatient appointments to be established prior to discharge. Next steps are for patient to meet with geriatric care manager to plan a safe discharge plan and establish outpatient services for ongoing treatment. (7) Confer with inpatient treatment team regarding treatment plan. (8) Legal status: [facility] (9) Consider discharge Thursday if patient is in stable condition, safe, and has a safe discharge plan. PSYCHOTROPIC MEDICATION TREATMENT INFORMED CONSENT and RECOMMENDATIONS: Review nature of condition, diagnosis, and prognosis. Review nature and purpose of psychotropic medication treatment. Review type of psychotropic medications being ordered. Review risk and benefits of psychotropic medication treatment. Review probable length of time patient will need to take medications. Review risk and benefits of not undergoing psychotropic medication treatment. Review alternative treatments to psychotropic medications. Review psychotropic medications contraindications, drug-drug interactions, side effects, and importance of reporting any side effects to a psychiatric provider or nurse during inpatient hospitalization, and upon discharge to patients psychiatric outpatient provider, primary care provider, or other health prompt care rn. Review importance of asking a nurse, psychiatric provider, or primary care provider any questions or problems concerning the psychotropic medications. Verify patient understands the information that has been provided, and understands, accepts, and agrees to psychotropic medications. Review patients safety plan and importance of patient to report to staff while hospitalized if patient is ever a danger to self/others, or unable to care for self, and upon discharge, the importance for patient to contact [facility] or [facility], or go to the nearest emergency room, if patient is ever a danger to self/others, or unable to care for self. Recommend that upon discharge patient establish medication management treatment with a psychiatric provider, establishes routine therapy appointments, and follow-up with primary care provider. Verify patient understands and agrees to these recommendations. 06/30/18 18:54 Subjective: Following up with patient for evaluation of psychosis and safety. Patient reports, "Doing better, just woke up, slept through the night." Patient reports AH as "better" and reports he was experiencing AH prior to hospitalization in [facility] and at [facility]. Patient expresses the following psychiatric symptoms AH. Patient reports taking medications as prescribed, and describes response to medications as good. Patient does not report undesirable side effects from the medications, and agrees to continue current medications. Patient agrees to continue medications after discharging, agrees to follow-up with [facility] for outpatient services, and requests assistance with housing after discharge. Patient describes getting 8 hours of sleep. Objective: Vital Signs Temp Pulse Resp BP Pulse Ox 36.4 C 82 20 122/86 H 93 06/30/18 06:00 06/30/18 06:00 06/30/18 06:00 06/30/18 06:00 06/30/18 06:00 NURSING REPORT: Consulted with nursing for update on patients progress in treatment. Nurses report patient is not engaged in treatment, is not attending groups, slept 8 hours, expresses the following psychiatric symptoms: AH; exhibits the following psychiatric symptoms: flat affect, withdrawn; is eating all meals, is agreeable to medications and taking as prescribed with no report of side effects, with no s/s of EPS/akathisia, and denies SI/HI, reports AH, denies VH, and denies delusions. Patient not attending to ADLs and requires prompting and direction from staff for meals. 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 [facility] up housing at homeless [facility] in [place]. MSE: The patient is an under-nourished male looking older than stated chronological age. Attire is inappropriate and dress is casual and hospital garb combination; patient presents with gown wrapped around his waist. Grooming status is inappropriate, unshaven, unwashed. Ambulation is independent. Gait is normal and coordinated. Posture is normal and relaxed. Eye contact is inappropriate and avoided. Motor activity is appropriate with purposeful, organized, coordinated movements; with no involuntary movements. Attitude is cooperative. Patient appears more attentive compared to yesterday and relates well to this interviewer. Language production is spontaneous. R/R/ V normal. Articulation is clear. Patient reports mood as okay with incongruent and flat, constricted affect. Patients thought process is linear and logical, less disorganized. Patient does not report suicidal/homicidal thoughts, ideas, or plans. Patient reports auditory hallucinations, denies visual hallucinations. Patient denies delusions. Patient does not appear to be attending to internal stimuli during interview. Patients attention and concentration are poor. Patient is oriented to person, place, time. Patients insight and judgement are poor. - Time Spent With Patient Time Spent With Patient: 15 minutes, met with patient individually. - Pending Discharge Pending Discharge Within 24 Hours: No Pending Discharge Within 48 Hours: Yes Pending Discharge Date: 07/03/18 Pending Discharge Time: 11:00 ICD10 Worksheet Patient Problems: Problems Problem Status Onset Schizophrenia Acute - ICD10 Problem Qualifiers (1) Schizophrenia
[2018-06-30] MEDS: OLANZapine DISINTEGR 10 MG TAB PO SCH ×2 (08:24→19:07)
--- NOTE | 2018-06-30 12:36 | ASMTCMCOM ---
CM Note CM Note Notes: Client remains on the unit outside of his room with peers. Client suggests feeling "ok," today while denying any feelings of anxiety, depression/sadness, S/I-H/I or AVH to this health underwriter. Client feels good about discharging this Thursday; CC will call on Thursday morning to help reserve him a skilled nursing bed,etc. Client's follow up with [facility] has been scheduled for: Follow up with: [facility] [address] [place] [address] Intake Appt: Thursday (06/1918) at 8:30am Date Signed: 06/30/2018 12:35 PM Electronically Signed By:Bernardo Russo
--- NOTE | 2018-07-01 07:17 | SOAPPROG ---
SOAP Progress Note Assessment/Plan: Assessment: Schizophrenia. Withdrawn, diminished emotional affect. Improvement noted; notably willingness to take medications as prescribed, improved insight and linear thinking (see Subjective and Objective). Discharge tomorrow. Patient could benefit from continued inpatient hospitalization for continued medication evaluation, stabilization, and continuity of care as will be escorted to outpatient services at [facility] by physician primary care sports medicine tomorrow following discharge. Patient has not received services from [facility] since 2009, and could benefit from re-establishing services to reduce risk of decompensation and potential re-hospitalization. Escorting patient to [facility] tomorrow will go along way toward meeting this goal. Plan: (1) Psychotropic medications: Patient agrees to continue Zyprexa Zydis 10 mg po BID. (2) Review with patient informed consent and recommendations for psychotropic medication treatment listed below. (3) Labs: no additional labs at this time (4) Therapy: continue milieu and group therapy (5) Further investigation including gathering information from patients relatives and review of past case records to inform treatment plan. (6) Safety/Wellness plan and follow-up outpatient appointments to be established prior to discharge. Next steps are for patient to meet with rn managed care to plan a safe discharge plan and establish outpatient services for ongoing treatment. (7) Confer with inpatient treatment team regarding treatment plan. (8) Legal status: [facility] (9) Consider discharge Thursday if patient is in stable condition, safe, and has a safe discharge plan. PSYCHOTROPIC MEDICATION TREATMENT INFORMED CONSENT and RECOMMENDATIONS: Review nature of condition, diagnosis, and prognosis. Review nature and purpose of psychotropic medication treatment. Review type of psychotropic medications being ordered. Review risk and benefits of psychotropic medication treatment. Review probable length of time patient will need to take medications. Review risk and benefits of not undergoing psychotropic medication treatment. Review alternative treatments to psychotropic medications. Review psychotropic medications contraindications, drug-drug interactions, side effects, and importance of reporting any side effects to a psychiatric provider or nurse during inpatient hospitalization, and upon discharge to patients psychiatric outpatient provider, primary care provider, or other health healthcare or medical. Review importance of asking a nurse, psychiatric provider, or primary care provider any questions or problems concerning the psychotropic medications. Verify patient understands the information that has been provided, and understands, accepts, and agrees to psychotropic medications. Review patients safety plan and importance of patient to report to staff while hospitalized if patient is ever a danger to self/others, or unable to care for self, and upon discharge, the importance for patient to contact [facility] or [facility], or go to the nearest emergency room, if patient is ever a danger to self/others, or unable to care for self. Recommend that upon discharge patient establish medication management treatment with a psychiatric provider, establishes routine therapy appointments, and follow-up with primary care provider. Verify patient understands and agrees to these recommendations. 07/01/18 07:17 Subjective: Following up with patient for evaluation of psychosis and safety. Patient reports, "Doing okay." Patient reports AH as "none" and reports he was experiencing AH prior to hospitalization in halfway and at [facility]. Patient expresses no current psychiatric symptoms. Patient reports taking medications as prescribed, and describes response to medications as good. Patient does not report undesirable side effects from the medications, and agrees to continue current medications. Patient describes getting 8 hours of sleep. Patient agrees to continue medications after discharging, agrees to follow-up with [facility] for outpatient services, and requests assistance with housing after discharge. Patient agrees to be escorted to [facility] tomorrow after discharge. Objective: Vital Signs Temp Pulse Resp BP Pulse Ox 36.2 C 76 14 131/92 H 93 07/01/18 06:00 07/01/18 06:00 07/01/18 06:00 07/01/18 06:00 07/01/18 06:00 NURSING REPORT: Consulted with nursing for update on patients progress in treatment. Nurses report patient is not engaged in treatment, is not attending groups, slept 9 hours, expresses the following psychiatric symptoms: anxiety; exhibits the following psychiatric symptoms: flat affect, withdrawn; is eating all meals, is agreeable to medications and taking as prescribed with no report of side effects, with no s/s of EPS/akathisia, and denies SI/HI, reports AH, denies VH, and denies delusions. Patient not attending to ADLs (no shower/ hygiene since admission) and requires prompting and direction from staff for meals. TRAFFIC CHIEF UPDATE: epic application coordinator to walk patient to [facility] to establish outpatient services on Thursday. Set up housing at homeless correction in [place], [place]. MSE: The patient is an under-nourished male looking older than stated chronological age. Attire is inappropriate and dress is casual and hospital garb combination; patient presents with gown wrapped around his waist. Grooming status is inappropriate, unshaven, unwashed. Ambulation is independent. Gait is normal and coordinated. Posture is normal and relaxed. Eye contact is inappropriate and avoided. Motor activity is appropriate with purposeful, organized, coordinated movements; with no involuntary movements. Attitude is cooperative. Patient appears more attentive compared to yesterday and relates well to this interviewer. Language production is spontaneous. R/R/ V normal. Articulation is clear. Patient reports mood as okay with incongruent and flat, constricted affect. Patients thought process is linear and logical, less disorganized. Patient does not report suicidal/homicidal thoughts, ideas, or plans. Patient denies auditory hallucinations, denies visual hallucinations. Patient denies delusions. Patient does not appear to be attending to internal stimuli during interview. Patients attention and concentration are poor. Patient is oriented to person, place, time. Patients insight and judgement are poor. - Time Spent With Patient Time Spent With Patient: 15 minutes, met with patient individually. - Pending Discharge Pending Discharge Within 24 Hours: Yes Pending Discharge Within 48 Hours: No Pending Discharge Date: 07/02/18 Pending Discharge Time: 11:00 ICD10 Worksheet Patient Problems: Problems Problem Status Onset Schizophrenia Acute Schizophrenia Acute - ICD10 Problem Qualifiers (1) Schizophrenia
[2018-07-01] MEDS: OLANZapine DISINTEGR 10 MG TAB PO SCH ×2 (07:38→19:46)
[2018-07-02 06:42] VITALS: BP 116/76
[2018-07-02] MEDS: OLANZapine DISINTEGR 10 MG TAB PO SCH (07:27)
--- NOTE | 2018-07-02 12:57 | BDS ---
REASON FOR ADMISSION: From the ED note dated 06/25/2018, the patient presented to the emergency room on an M1 hold. The patient was on an M1 hold for grave disability. The patient has a history of schizophrenia, not taking his medications. The patient is homeless. According to the retirement, the patient was responding to internal stimuli. The patient was unable to care for himself and was nonadherent to medications. Report from the [facility] manager power reported to this PARTY PLAN SALES DIRECTOR that while patient was in the ER, he was observed attending to internal stimuli. The patient was admitted involuntarily on an M1 hold due to being gravely disabled due to a mental illness. The patient was admitted for safety, crisis stabilization, and medication management. ADMITTING DIAGNOSES: 1. Schizoaffective disorder, bipolar type. 2. Rule out schizophrenia. 3. Homelessness. ADMISSION PHYSICAL EXAM: The patient was seen on 06/26/2018, for a history and physical for medical clearance for inpatient psychiatric hospitalization and treatment. The patient was medically cleared for inpatient psychiatric hospitalization and treatment. For further details, please refer to history and physical note dated 06/26/2018. ADMISSION LABS: 1. CBC from 06/25/2018, within normal limits, except absolute eosinophils were elevated at 0.48. 2. BMP from 06/25/2018, within normal limits, except glucose elevated at 101. 3. Hemoglobin A1c from 06/25/2018, was within normal limits at 5.2. 4. Liver function from 06/25/2018, within normal limits. 5. Lipid panel from 06/25/2018, within normal limits, except LDL cholesterol calculated was elevated at 149, and non-HDL cholesterol was elevated at 165. 6. Toxicology screen from 06/25/2018, negative for all substances tested, negative for ethyl alcohol. MAJOR PROCEDURES OR TESTS: None. HOSPITAL COURSE: The most prominent symptoms and behaviors while the patient was here were the patient's self report of auditory hallucinations. The patient was withdrawn to his room for the first several days of hospitalization. Patient refused all medications. Patient presented paranoid regarding medications. Patient presented with negative symptoms, including diminished emotional expression. Psychosis was targeted during hospitalization. Treatment modalities utilized were milieu and group therapy. After meeting with the patient and reviewing options, risks and benefits, the patient did finally agree upon Zyprexa Zydis 10 mg p.o. b.i.d. to target psychosis symptoms. Medication was tolerated, with no report of side effects and with good response. At time of discharge, dose was changed to Zyprexa 20 mg p.o. q.h.s. to improve medication adherence. The patient agreed to this change, and patient agreed to continue medications on an outpatient basis. The patient has improved considerably since time of admission. Patient reports he has improved since admission, states to be in stable condition, feels safe to discharge, and he contracts for safety. Patient's response to treatment was good. There were no adverse or unexpected results of treatment. The patient was safe throughout his stay. After several days of hospitalization and medication, patient did begin to attend and engage in groups, was eventually active in treatment, was appropriate with staff and other patients throughout his stay. Patient met with the treatment team prior to discharge to assess readiness to discharge and review discharge plan. The treatment team consensus is the patient is in stable condition, has a safe discharge, and is ready to discharge today. CONDITION ON DISCHARGE: Patient is in stable condition and is not a danger to self or others, and is not gravely disabled due to mental illness. Patient is no longer in need of inpatient level of care, and can be safely and effectively treated within the community. The patients level of risk at time of discharge is low. MSE: The patient is casually dressed and with good hygiene, and looks stated age. Patient is sitting, posture is upright, and position is relaxed. Patient appears awake, alert, and responds appropriately and reasonably during interview. Patient is engaged, relates well to interviewer, and emotional facial expression is appropriate to situation and changes appropriately with topic. Patient is cooperative, makes comfortable eye contact, and movements are voluntary, deliberate, coordinated, and smooth and even with no inappropriate movements. Patient makes laryngeal sounds effortlessly and shares conversation appropriately; pace of conversation is appropriate, and stream of talking is fluent; articulation is clear and understandable; word choice is effortless and appropriate for education level; completes sentences, occasionally pausing to think; rate and volume are appropriate for interview and setting. Patient reports mood as euthymic. Patients affect is stable with full variable range, congruent with mood, and appropriate to speech and circumstances. Patient has linear and logical thinking, with no loose associations, tangential thought, thought blocking, concrete thinking, or any other signs of formal thought disorder. Patient denies suicidal and homicidal ideation, and denies hallucinations and delusions. Patient appears to be a reliable historian with sound judgement and good insight into current condition. Patient has no apparent dysfunction in recent or remote memory noted , and no evidence of gross cognitive dysfunction noted at any point during the interview. DISCHARGE DIAGNOSES: 1. Schizophrenia. 2. Homelessness. CURRENT MEDICATIONS: After reviewing options, risks and benefits with the patient, the patient agrees to continue Zyprexa 20 mg p.o. q.h.s. for psychosis. The patient requests prescription at the time of discharge for this medication. The prescription is reviewed with the patient at time of discharge to ensure accuracy and patient understanding. A prescription for 30 days is provided to the patient at time of discharge. DISPOSITION: Patient left hospital independently and voluntarily and plans to follow up at [facility] today, and patient agrees to attend his outpatient appointment scheduled for July 12, 2018. Patient was escorted to [facility] by healthcare or medical to establish services after discharge. Patient plans to stay at homeless snf in [place]. FOLLOWUP: nursing information systems coordinator reports the appropriate outpatient follow-up services have been established and outpatient appointments have been scheduled. The patient received written instructions with times and dates of outpatient follow-up appointments. The following follow-up recommendations were provided to the patient at discharge: Continue psychotropic medications as prescribed and attend appointments as scheduled. Report any side effects to a psychiatric outpatient provider, a primary care provider, or other health pet caretaker. Address any questions or problems concerning the psychotropic medications with a psychiatric outpatient provider, a primary care provider, or other health pet caretaker. Contact [facility] or [facility], or go to the nearest emergency room, if you are ever a danger to yourself/others, or unable to care for yourself. As soon as possible, establish a routine medication management treatment with a psychiatric provider, establish routine therapy appointments, and follow-up with a primary care provider. LEGAL COURSE: The patient was admitted on an M1 hold for involuntary inpatient psychiatric hospitalization. The patient was placed on a short-term certification during the course of his hospitalization. Patient discharged today independently and voluntarily, and his short-term certification was terminated. ATTITUDE AT TIME OF DISCHARGE: The patients attitude was positive at time of discharge, and patient reports looking forward to discharging today. The patient reports he feels safe to discharge, is no longer a danger to himself or others, is in stable condition, and contracts for safety. Patient states he will continue medications as prescribed, and establish medication management treatment with an outpatient provider after discharge. Patient reports he understands the information that has been provided to him, and he understands, accepts, and agrees to psychotropic medications. Patient describes internal protective factors as the coping skills he has learned while hospitalized here, and he plans to continue to practice these coping skills after discharge. LABS AND STUDIES: There were no pending labs or studies at time of discharge. ADVANCE DIRECTIVES: There were no advance directives on file, and patient was full code during this hospitalization. The following psychotropic medication treatment informed consent and recommendations were provided to the patient at time of discharge. Patient reports he understands, accepts, and agrees to the information that has been provided. PSYCHOTROPIC MEDICATION TREATMENT INFORMED CONSENT and RECOMMENDATIONS: Review nature of condition, diagnosis, and prognosis. Review nature and purpose of psychotropic medication treatment. Review type of psychotropic medications being prescribed. Review risk and benefits of psychotropic medication treatment. Review probable length of time will need to take medications. Review risk and benefits of not undergoing psychotropic medication treatment. Review alternative treatments to psychotropic medications. Review psychotropic medications contraindications, side effects, and importance of reporting any side effects to a psychiatric provider, primary care provider, or other health pet caretaker. Review importance of asking a psychiatric provider or primary care provider any questions or problems concerning the psychotropic medications. Review safety plan and the importance to contact [facility] or [facility] , or go to the nearest emergency room, if ever a danger to yourself/others, or unable to care for yourself. Recommend upon discharge to establish routine medication management treatment with a psychiatric provider, establish routine therapy appointments, and follow-up with a primary care provider. Verify patient understands, accepts, and agrees to the information that has been provided. /[id number]
== END 2018-07-02 13:30 | disposition home or self-care (01) | DRG 885 ==
LOC: EDBD 01:11 → MERGE 18:40 → BBEH 18:40
PROVIDERS: ADMIT Registered Nurse; ATTEND Registered Nurse
DX: F25.0 Schizoaffective disorder, bipolar type (principal); Z59.0 Homelessness; T43.506A Underdosing of unspecified antipsychotics and neuroleptics, initial encounter; B85.0 Pediculosis due to Pediculus humanus capitis; Z72.0 Tobacco use
CPT/HCPCS: 80305; G0480